=== PATIENT | male | born 1995 | race Caucasian/White ===

== ENCOUNTER 2022-07-03 15:39 | Emergency (ER) | payer OTHER ==
[~2022-07-03] VITALS: Ht 172.7 cm; Wt 77.1 kg
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
[2022-07-03 15:47] VITALS: BP 137/91
== END 2022-07-03 15:42 | disposition left against medical advice (07) ==
LOC: MED 15:39
DX: Z53.21 Procedure and treatment not carried out due to patient leaving prior to being seen by health care provider (principal); V89.2XXA Person injured in unspecified motor-vehicle accident, traffic, initial encounter; Y93.89 Activity, other specified; Y92.89 Other specified places as the place of occurrence of the external cause; Y99.8 Other external cause status